=== PATIENT | male | born 1950 | race Two or more races ===

== ENCOUNTER 2018-08-28 17:40 | Emergency (ER) | payer MEDICARE, MEDICAID ==
[~2018-08-28] VITALS: Ht 175.3 cm; Wt 87.0 kg
[2018-08-28 17:55] VITALS: BP 180/96
== END 2018-08-28 23:57 | disposition left against medical advice (07) ==
LOC: ER 17:40
DX: R05 Cough (principal); R07.89 Other chest pain; Z53.21 Procedure and treatment not carried out due to patient leaving prior to being seen by health care provider